=== PATIENT | female | born 1940 | race Caucasian/White ===

== ENCOUNTER 2024-11-10 08:30 | Inpatient (IN) | payer MEDICARE, OTHER, SELFPAY ==
[2024-11-07 21:45] VITALS: BP 170/98
--- NOTE | 2024-11-07 23:07 | ED.GENMED ---
History of Present Illness
General
Chief Complaint: Musculo-Skeletal Complaint
Source: patient and witness (Friend of hers who was with the patient all day today, witnessing fall and assisting during fall and after.)
Exam Limitations: none
Time Seen by Provider: 11/07/24 22:30
Nursing documentation reviewed up to this point in time: agreed with
History of Present Illness
History of Present Illness:
This is an 84-year-old woman who resides at home, alone, independently. She has history of persistent A-fib chronically maintained on Xarelto. History of CHF, chronic kidney disease, hypothyroidism, gout, morbid obesity. She also has history of
osteoarthritis, chronic ambulatory dysfunction, chronically uses a walker to ambulate.
She traveled to the [place] today in preparation to sell her sure house. She was accompanied by her friend who is assisting her to ambulate up 4 steps to the outside steps. While doing so she lost her balance and fell backwards onto her
friend who assisted her while falling. She denies head injury nor loss of consciousness but states she twisted her knees and complains of pain more so left knee than right. She required assistance from 2 male strangers to help her to stand and
help her to ambulate up the steps and into her house. She was able to ambulate albeit slowly with her walker and proceeded to sit down on the couch. Initial fall occurred around 12 noon.
She continued to sit on the couch while waiting for a [email or web address] company and eventually plan to leave for home around 6 PM. Unfortunately she was unable to stand from seated position on the couch due to bilateral knee pain and again
required assistance from strangers to help her to stand up from the couch. They then assisted her with her walker to ambulate out to her outdoor steps where she took 1 step and her left knee gave out and she fell again onto her bottom. Again
denies head injury nor loss of consciousness. She was able to scoot down the steps on her her bottom and was assisted to stand by the strangers, assisted to ambulate into the passenger seat of her friend's car.
Upon returning home, locally, she was unable to get out of the car thus her friend brought her to the ED for further evaluation.
She did take 2 Tylenol around 8 PM, only mild improvement in pain.
She denies weakness or numbness, denies hip pain nor back pain nor neck pain, no headache, no nausea nor vomiting, no abdominal pain. She denies chest pain or palpitations nor shortness of breath.
She does have history of gout with recent prolonged gout flare of her foot this spring and then more recently a gout flare of her left small finger approximately 3 weeks ago. Was evaluated by her nursing secretary 3 weeks ago and was placed on a course
of colchicine which she noted relief of gout but colchicine caused significant lower abdominal discomfort/pain, bloating.
Upon review of records, PCP discussed initiation of allopurinol during most recent visit in May. Patient was hesitant at that time.
She does admit to 'a lot of arthritis' and takes Tylenol on a regular basis. She notes somewhat chronic right knee pain. Has never undergone orthopedic evaluation for her knee/joint pains.
Past History
Past History
ED Past Medical History: Arrthythmia (Chronic atrial fibrillation), CHF, Renal failure (Chronic kidney disease), Hypothyroidism and Other (Gout, arthritis, morbid obesity, ambulatory dysfunction/utilizes walker to ambulate)
ED Past Surgical History: Appendectomy, (X 4), Orthopedic (Cervical laminectomy), Tonsilectomy and Other (Splenectomy)
Social History
Tobacco: Non-smoker
Alcohol: None
Personal:
Living: alone
Employment: Retired
Family History
Family History: Other (Noncontributory)
Phy Exam
Physical Exam
Physical Exam:
TRAUMA EXAM:
VITAL SIGNS: Vital signs reviewed, cooperative. 84-year-old morbidly obese woman appears her stated age, bright and alert, pleasant, appears in mild distress related to pain but easily communicative.
DISTRESS: Appears in mild distress related to pain. A female friend is accompanying.
EYES: Pupils reactive, no orbital trauma
NOSE: No deformity or epistaxis
FACE AND SCALP: No scalp or facial trauma, external canals no blood
NECK: Supple nontender
BACK: Back nontender, pelvis stable to compression
RESPIRATORY: No distress, breath sounds normal, no tender chest wall
CARDIAC: No murmur, pulses equal and strong
ABDOMEN: Rotund, soft nontender bowel sounds normal
SKIN: Skin intact no bleeding, color normal
EXTREMITIES: Bilateral knees with moderate soft tissue swelling versus joint effusion bilaterally left greater than right with moderate tenderness about the left anterior to lateral knee with moderately restricted range of motion related to pain.
No crepitus. There is mild to moderate tenderness about the anterior, medial as well as lateral right knee. Moderately restricted range of motion right knee related to pain. No crepitus. There is no tenderness to the lower leg nor thigh nor
hips. Peripheral pulses are full and equal bilaterally. Sensation and strength intact.
NEUROLOGICAL: Alert, oriented x 3, lower extremity distal strength and sensation intact. Significantly limited leg lift bilaterally related to bilateral knee pain. Bilateral upper extremity sensation and strength intact.
PSYCH: Mood affect normal
Course
Orders/Labs/Results
Orders:
Orders
11/07/24 23:05
Ondansetron HCl [Zofran] 4 mg PO NOW STA
Rivaroxaban [Xarelto] 20 mg PO NOW STA
Tramadol HCl [Ultram] 50 mg PO NOW STA
Knee, Left 4 or More Views [CR Knee - Left 4 Or More View*] Urgent
Comment:
Reason For Exam: fall x2 b/l knee pain L>R
Knee, Right 4 or More Views [CR Knee- Right 4 Or More View*] Urgent
Comment:
Reason For Exam: fall x2, b/l knee pain L>R
11/07/24 23:52
CRP [C-Reactive Protein] Urgent
Complete Blood Count/With Diff Urgent
Comprehensive Metabolic Panel Urgent
Sed Rate [Erythrocyte Sed Rate] Urgent
Uric Acid Urgent
Abnormal Lab Results
11/07/24
23:52
WBC 11.3 H 10^3/uL
(4.8-10.8)
RBC 3.99 L 10^6/uL
(4.20-5.40)
MCV 100.5 H fL
(81.0-99.0)
MCH 33.1 H pg
(27.0-31.0)
MCHC 32.9 L g/dL
(33.0-37.0)
RDW 15.3 H %
(11.5-14.5)
MPV 11.0 H fL
(7.4-10.4)
Absolute Neuts (auto) 8.3 H 10^3/uL
(1.4-6.5)
Absolute Monos (auto) 1.0 H 10^3/uL
(0.1-0.6)
Lymphocytes % 16.5 L %
(20.5-51.1)
11/07/24 23:52
Vital Signs
Initial and Last Documented VS:
Initial Vital Signs
Temp Pulse Resp BP Pulse Ox
98.0 F 92 18 170/98 96
11/07/24 21:45 11/07/24 21:45 11/07/24 21:45 11/07/24 21:45 11/07/24 21:45
Last Documented Vital Signs
Temp Pulse Resp BP Pulse Ox
98.0 F 73 20 143/80 97
11/07/24 21:45 11/08/24 00:10 11/08/24 00:10 11/08/24 00:10 11/08/24 00:10
MDM/Problems Addressed
Differential Diagnosis Includes:
The Differential Diagnosis includes, in no particular order and is not limited to:
1. Fracture (patellar, tibial plateau)
2. Meniscal tear
3. Ligamentous injury
4. Exacerbation of osteoarthritis
5. Gout flare
6. Soft tissue injury or strain
7. Deep vein thrombosis-unlikely, patient has been compliant with Xarelto, nothing on exam to suggest DVT.
8. Muscle spasm
9. Cellulitis
10. Peripheral neuropathy
MDM/Problems Addressed:
Acute:
- Bilateral knee pain following falls.
- Bilateral leg swelling.
- Potential musculoskeletal injury from falls.
Chronic:
- Gout.
- Chronic kidney disease
- Chronic A-fib�maintained on Xarelto
Chronic conditions affecting care: Arrhythmia and Kidney disease
Acute Exacerbation and/or Progression of Chronic Illness:
Chronic ambulatory dysfunction requiring walker to ambulate
Chronic joint pain/arthritis.
Falls x 2 today with acute on chronic bilateral knee pain
Will medicate for pain with an oral dose of tramadol. Due to prior history of nausea with Percocet will pretreat with a dose of Zofran.
Will give her usual dose of Xarelto tonight. No evidence of hematoma nor hemarthrosis.
Denies head injury, no headache, no neck or back pain, no focal neuro-deficits thus CT of the head is not indicated.
Social determinants of health:
Patient resides alone and chronically requires a walker to ambulate.
With severe bilateral knee pain after fall x 2 today, she is at significant risk for recurrent falls, at risk for significant injury as she is chronically maintained on Xarelto.
As such will require acute hospitalization for pain control, ambulation evaluation. May require orthopedic evaluation.
Will check labs as well as inflammatory markers, uric acid.
*Radiology
Radiology exam reviewed: preliminary read by ED provider (Bilateral knee x-rays show moderate DJD with significant joint space narrowing laterally. No evidence of fracture.)
*Pulse Oximetry
SaO2: 96
Oxygen Mode of Delivery: Room air
Patient hypoxic: no
*Critical Care Note
Total Time (30-74mins, 75-104mins- exclusive of procedures): Not Applicable
ED Attending Note
-
Portions of this chart may have been created with voice recognition software.� Occasional wrong word or��sound alike� substitutions may have occurred due to the inherent limitations of voice recognition software.
Discharge Plan
Departure
Patient Disposition: Admit
Date of Disposition: 11/08/24
Time of Disposition: 00:24
Admit to: Med/Surg
Admit to doctor: Mendoza
Presentation/result/management discussed w/ accepting MD/DO: Hospitalist
Condition: Fair
Discharge Problem:
acute sprain/strain b/l knees, acute on chronic ambulatory dysfunction, Morbid obesity
Prescriptions:
No Action
acetaminophen [Tylenol] 325 mg Tablet
650 mg PO DAILY
potassium chloride [Klor-Con 10] 10 mEq Tablet Extended Release
10 meq PO BID
levothyroxine 50 mcg Tablet
50 mcg PO DAILY
furosemide 20 mg Tablet
20 mg PO DAILY
rivaroxaban [Xarelto] 20 mg Tablet
20 mg PO DAILY
Vitamin D
50 mcg PO DAILY
Referrals:
Jody Willingham MD [Family Provider, Family Practice]
Interventions
Interventions:
*Risk Screen - Suicide Last Done: 11/08/24 00:10
*General Assessment Last Done: 11/07/24 21:45
*Neglect/Abuse Screening Last Done: 11/08/24 00:10
*ED- Fall Risk Assessment Last Done: 11/08/24 00:10
*ED COVID-19 Vaccine History Last Done: 11/08/24 00:10
ED-Musculoskeletal Assessment Last Done: 11/08/24 00:10
Discharge Date and Time
Print Language: TURKMEN
[2024-11-07] MEDS: ZOFRAN 4 MG PO (23:29)
[2024-11-07] MEDS: XARELTO 20 MG PO (23:29)
[2024-11-07] MEDS: ULTRAM 50 MG PO (23:55)
[2024-11-08] VITALS (7 sets, daily range): BP systolic 96–144; BP diastolic 56–80; PULSE 92; BMI 45.4; BMI 44.9
[2024-11-08 00:01] LABS: Hematocrit 40.1 % (37.0-47.0); Hemoglobin 13.2 g/dL (12.0-16.0); Mean Corp Hgb Conc. 32.9 g/dL (33.0-37.0); Mean Corpuscular Volume 100.5 fL (81.0-99.0); Nucleated Red Blood Cells % 0 %; Platelet Count 313 10^3/uL (130-400); Red Cell Dist. Width 15.3 % (11.5-14.5)
[2024-11-08 00:28] LABS: Blood Urea Nitrogen 24 mg/dl (7-17); Calcium 10.0 mg/dl (8.4-10.2); Carbon Dioxide 28 mmol/L (22-30); Chloride 107 mmol/L (98-107); Estimated Creatinine Clearance 52 ml/min; Glucose 114 mg/dl (70-99); Sodium 140 mmol/L (135-145); Uric Acid 7.3 mg/dl (2.5-6.2); eGFR 55.55
[2024-11-08 00:29] LABS: C-Reactive Protein 44.00 mg/L (0.0-10.00)
--- NOTE | 2024-11-08 01:55 | HPS.HSE ---
Family Physician
-
Family Physician: Jdoy Willingham MD
Chief Complaint
-
Knee Pain, Weakness
History of Present Illness
Patient is an 84y F with PMH significant for A-Fib, DJD and obesity who presents to ED complaining of bilateral knee pain and weakness / falls. [place]. While trying to climb
the stairs into her home she had significant difficulty. She notes that her L knee 'gave out' and she fell. Her friend was behind her on the stairs and she did not strike her had or suffer and impact injury. She does state that her L knee in
particular twisted significantly during the fall. Patient was assisted by two passers-by and helped into her house. She sat on the couch for several hours and notes that she was unable to stand due to pain and leg weakness.
Patient was assisted back down the stairs and states that she suffered a second fall. Again, no significant injury / trauma. She was assisted into her car and returned to [facility].
Upon arrival here, patient was met at home by her son - but was unable to even get out of the car to attempt to walk into the house.
She was brought to the ED for further evaluation.
Patient complains of pain in the R knee > > L knee.
Medical History
Past Medical History
Past Medical History: Reports Other
Additional Past Medical History:
Permanent Atrial Fibrillation
History of DVT
Hypothyroidism
Chronic HFpEF
Obesity
Past Surgical History: Reports Other
Additional Past Surgical History:
Appendectomy
Cervical Laminectomy
T&A
x 4
Splenectomy
DCCV
Social History
Tobacco: Non-smoker
Alcohol: Occasional
Drug: None
Family History
Family History: Not pertinent
Allergies / Home Medications
Allergies reflects when Allergies were last updated in [employer].
Home Medications with original date entered in [employer]
Allergy/Medication List:
Allergies
Allergy/AdvReac Type Severity Reaction Status Date / Time
oxycodone (From Percocet) Allergy Unknown Verified 11/07/24 21:45
Home Medications
Vitamin D 50 mcg PO DAILY 11/07/24
acetaminophen 325 mg tablet (Tylenol) 650 mg PO DAILY 11/07/24
furosemide 20 mg tablet 20 mg PO DAILY 11/07/24
levothyroxine 50 mcg tablet 50 mcg PO DAILY 11/07/24
potassium chloride 10 mEq tablet,extended release (Klor-Con) 10 meq PO BID 11/07/24
rivaroxaban 20 mg tablet (Xarelto) 20 mg PO DAILY 11/07/24
Review of Systems
-
History Source: Patient
A 12 point ROS was completed and negative except as noted: Yes
Constitutional: Reports Fatigue; Denies Fever or Chills
Respiratory: Denies Cough or Trouble Breathing
Cardiac: Denies Chest Pain or Palpitations
Abdomen/GI: Denies Abdominal Pain, Nausea, Vomiting or Diarrhea
: Denies Dysuria or Flank Pain
Musculoskeletal: Reports Joint Pain and Joint Swelling; Denies Edema
Neurological: Reports Weakness; Denies Dizzy or Headache
Physical Exam
Vital Signs
Vital Signs
Temp Pulse Resp BP Pulse Ox
98.0 F 73 20 143/80 97
11/07/24 21:45 11/08/24 00:10 11/08/24 00:10 11/08/24 00:10 11/08/24 00:10
Physical Exam
General: Other (84y F in no acute distress.)
HEENT: Moist mucous membranes
Respiratory: Clear; No Wheezes, Rales or Rhonchi
Cardiac: S1/S2 and Irregular Rhythm; No Murmur
GI: Soft, Non Tender, Non Distended and Normal Bowel Sounds
Musculoskeletal: No Clubbing, No Cyanosis and Other (Trace LE edema. L knee with mild tenderness about the knee - mostly laterally. No erythema, induration, hematoma, etc, Passive ROM with minimal discomfort.)
Neuro: AO x 3
Laboratory Results
-
11/07/24 23:52
11/07/24 23:52
Laboratory Results
Total Bilirubin Cancelled 11/07/24 23:52
AST Cancelled 11/07/24 23:52
ALT Cancelled 11/07/24 23:52
Alkaline Phosphatase Cancelled 11/07/24 23:52
Impression/Plan
-
A/P: Patient is an 84y F with PMH significant for A-Fib, hypothyroidism and obesity who presents to ED complaining of falls, knee pain and weakness.
L > R Knee Pain
Fall at Home (x 2)
Ambulatory Dysfunction
- Observe overnight for further evaluation and treatment.
- X-rays with advanced DJD but no acute fracture, etc.
- Pain control / supportive care.
- ? soft tissue injury given described twisting mechanism of initial fall.
- PT eval in the AM.
- Follow for clinical improvement / gait stability.
History of Gout
- Neither knee with significant erythema, increased warmth,etc to suggest gout component.
- Patient reports recent GI upset with course of colchicine (few weeks ago).
- Uric acid value noted.
- NSAIDs included in pain regimen.
Permanent Atrial Fibrillation
- Stable. Continue Xarelto for stroke risk reduction.
Chronic HFpEF
- Stable. No significant volume overload on exam.
- Patient states that she has not been taking Lasix for a week or two due to GI upset noted above.
- Continue to hold for now.
- Follow I/Os, daily weights, etc.
Hypothyroidism
- Continue T4 supplementation.
Morbid Obesity due to excess calories
- Affects all aspects of care and specifically joint pain / ambulatory issues.
- Encourage healthy diet and increased exercise with goal of weight reduction.
History of DVT
DVT Prophylaxis
- On Xarelto.
Code Status: Full
[2024-11-08] MEDS: TORADOL 10 MG IV ×2 (02:38→10:24)
--- NOTE | 2024-11-08 03:05 | PTCARENOTE ---
Pt admitted to 402-1 from ED. Pulled over to bed x 3. AAOx3, VSS. call parker within reach.
[2024-11-08] MEDS: SYNTHROID 50 MCG PO (06:37)
[2024-11-08 08:20] LABS: Hematocrit 36.0 % (37.0-47.0); Hemoglobin 11.7 g/dL (12.0-16.0); Mean Corp Hgb Conc. 32.5 g/dL (33.0-37.0); Mean Corpuscular Volume 102.3 fL (81.0-99.0); Platelet Count 287 10^3/uL (130-400); Red Cell Dist. Width 15.9 % (11.5-14.5)
[2024-11-08] MEDS: TYLENOL 1000 MG PO ×3 (08:24→21:39)
[2024-11-08 09:10] LABS: Blood Urea Nitrogen 23 mg/dl (7-17); Calcium 9.1 mg/dl (8.4-10.2); Carbon Dioxide 26 mmol/L (22-30); Chloride 110 mmol/L (98-107); Estimated Creatinine Clearance 47 ml/min; Glucose 97 mg/dl (70-99); Potassium 4.1 mmol/L (3.5-5.1); Sodium 141 mmol/L (135-145); eGFR 49.55
--- NOTE | 2024-11-08 10:38 | PTOTSP ---
Please order occupational therapy eval for ADL dysfunction for rehab placement.
[2024-11-08] MEDS: DESENEX/MITRAZOL/ZEASORB 1 APPLIC TOPICAL ×2 (14:12→21:40)
--- NOTE | 2024-11-08 14:22 | W.PN.HOSP.TC ---
Today's Communication/Plan
-
Pain control, PT
Assessment / Plan
Assessment / Plan
A/P: Patient is an 84y F with PMH significant for A-Fib, hypothyroidism and obesity who presents to ED complaining of falls, knee pain and weakness.
B/l knee pain
Ambulatory Dysfunction
- X-rays with advanced DJD but no acute fracture, etc.
- Ice and raise legs
- Pain control / supportive care.
- ? soft tissue injury given described twisting mechanism of initial fall, consider CT or MRI if worsens.
- PT eval
- Follow for clinical improvement / gait stability.
History of Gout
- Neither knee with significant erythema, increased warmth,etc to suggest gout component.
- Patient reports recent GI upset with course of colchicine (few weeks ago).
- Uric acid value noted.
- NSAIDs included in pain regimen.
Permanent Atrial Fibrillation
- Stable. Continue Xarelto for stroke risk reduction. HR controlled
Chronic HFpEF
- Stable. No significant volume overload on exam.
- Patient states that she has not been taking Lasix for a week or two due to GI upset noted above.
- Continue to hold for now.
- Follow I/Os, daily weights, etc.
Hypothyroidism
- Continue T4 supplementation.
Morbid Obesity due to excess calories
- Affects all aspects of care and specifically joint pain / ambulatory issues.
- Encourage healthy diet and increased exercise with goal of weight reduction.
History of DVT
DVT Prophylaxis
- On Xarelto.
Code Status: Full
Anticipated Discharge: 24 - 48 hours
Subjective/Interval History
-
Date of Service: November 08, 2024
Pt still having a lot of knee pain, L >R
Objective Data
-
Labs:
Laboratory Results
11/08/24
06:43
WBC 9.4
Hgb 11.7 L
Hct 36.0 L
Plt Count 287
Sodium 141
Potassium 4.1
Chloride 110 H
Carbon Dioxide 26
BUN 23 H
Creatinine 1.1 H
Glucose 97
Calcium 9.1
Vital Signs:
Vital Signs
Temp Pulse Resp BP Pulse Ox
97.5 F 86 24 105/56 97
11/08/24 07:05 11/08/24 07:05 11/08/24 07:05 11/08/24 07:05 11/08/24 08:00
Review of Systems
-
All other systems: Reviewed and negative
Physical Exam
-
General: No Apparent Distress
HEENT: Moist Mucous Membranes, Anicteric and PERRLA
Respiratory: Clear to Auscultation; Negative Wheezes, Rales or Rhonchi
Cardiac: Regular Rhythm and S1/S2; Negative Murmur, Rub or Gallop
GI: Soft, Nontender, Nondistended and Normal Bowel Sounds
Musculoskeletal: Other (b/l knee tender)
Skin: Warm and Dry; Negative Rash, Ulcers or Lesions
Neuro: Awake and AO x 3
Hematologic / Lymphatic: No Lymphadenopathy
Psych: Calm
Data Reviewed
-
Diagnostic Radiology: Image personally visualized and interpreted
Labs: Labs Reviewed by me
--- NOTE | 2024-11-08 14:38 | CM ---
Addendum entered by Delores Leon RN 11/08/24 16:05:
PT indicates SNF . Pt under observation. Pt does not qualify for [facility] Waiver for SNF.
Original Note:
Alert awake oriented patient who lives alone in a 1 story home with 1 step to enter . She has a friend Olga who assists her as needed.Pt does not drive .She uses a walker and wheelchair.Pt has a son Sergey but does not have number. VERNON letter
explained signed on chart.
Hx of [facility] VN Hx of [facility] SNF
Pharmacy [facility]
PCP DR Willingham
PLan PT indicates SNF
[2024-11-08] MEDS: XARELTO 20 MG PO (18:14)
[2024-11-09 06:00] VITALS: BMI 45.7
[2024-11-09] MEDS: SYNTHROID 50 MCG PO (06:33)
[2024-11-09 07:55] VITALS: BP 133/89
[2024-11-09 07:56] LABS: Hematocrit 37.1 % (37.0-47.0); Hemoglobin 11.9 g/dL (12.0-16.0); Mean Corp Hgb Conc. 32.1 g/dL (33.0-37.0); Mean Corpuscular Volume 102.2 fL (81.0-99.0); Nucleated Red Blood Cells % 0 %; Platelet Count 277 10^3/uL (130-400); Red Cell Dist. Width 15.7 % (11.5-14.5)
[2024-11-09 08:23] LABS: Blood Urea Nitrogen 27 mg/dl (7-17); Calcium 9.2 mg/dl (8.4-10.2); Carbon Dioxide 27 mmol/L (22-30); Chloride 107 mmol/L (98-107); Estimated Creatinine Clearance 43 ml/min; Glucose 104 mg/dl (70-99); Potassium 4.2 mmol/L (3.5-5.1); Sodium 138 mmol/L (135-145); eGFR 44.64
[2024-11-09] MEDS: TYLENOL 1000 MG PO ×3 (08:48→21:05)
[2024-11-09] MEDS: DESENEX/MITRAZOL/ZEASORB 1 APPLIC TOPICAL ×2 (08:48→20:37)
[2024-11-09 10:42] VITALS: BMI 45.7
[2024-11-09] MEDS: TYLENOL PO (11:13)
--- NOTE | 2024-11-09 13:30 | W.PN.HOSP.TC ---
Today's Communication/Plan
-
CT of knees
OTG eval
Assessment / Plan
Assessment / Plan
A/P: Patient is an 84y F with A-Fib, hypothyroidism and obesity who presents with knee pain after a fall.
B/l knee pain
Ambulatory Dysfunction
- X-rays with advanced DJD but no acute fracture.
- Ice and raise legs
- Pain control / supportive care.
- ? soft tissue injury given described twisting mechanism of initial fall, check CT of knees, to rule out occult fracture or effusion. If any found can consult orthopedic surgery.
- PT eval rec SNF but pt is obs and it wont be covered per CM
OT eval
- Follow for clinical improvement / gait stability.
Constipation
bowel regimen
History of Gout
- Neither knee with significant erythema, increased warmth, etc to suggest gout component.
- Patient reports recent GI upset with course of colchicine (few weeks ago).
- Uric acid value noted.
Permanent Atrial Fibrillation
- Stable. Continue Xarelto for stroke risk reduction. HR controlled
Chronic HFpEF
- Stable. No significant volume overload on exam.
- Patient states that she has not been taking Lasix for a week or two due to GI upset noted above.
- Follow I/Os, daily weights, etc.
Hypothyroidism
- Continue T4 supplementation.
Morbid Obesity due to excess calories
- Affects all aspects of care and specifically joint pain / ambulatory issues.
- Encourage healthy diet and increased exercise with goal of weight reduction.
History of DVT
DVT Prophylaxis
- On Xarelto.
Code Status: Full
Anticipated Discharge: 24 - 48 hours
Subjective/Interval History
-
Date of Service: November 09, 2024
Patient complaining of a lot of pain in her left greater than right knee and says she can even stand. She is constipated
Objective Data
-
Labs:
Laboratory Results
11/09/24
07:16
WBC 7.9
Hgb 11.9 L
Hct 37.1
Plt Count 277
Sodium 138
Potassium 4.2
Chloride 107
Carbon Dioxide 27
BUN 27 H
Creatinine 1.2 H
Glucose 104 H
Calcium 9.2
Vital Signs:
Vital Signs
Temp Pulse Resp BP Pulse Ox
98.6 F 84 16 133/89 93
11/09/24 07:55 11/09/24 07:55 11/09/24 07:55 11/09/24 07:55 11/09/24 08:45
I&O
11/08/24 11/09/24 11/10/24
06:59 06:59 06:59
Intake Total 1100 / 1100
Output Total 200 / 200
Balance 900 / 900
Review of Systems
-
All other systems: Reviewed and negative
Physical Exam
-
General: No Apparent Distress
HEENT: Moist Mucous Membranes, Anicteric and PERRLA
Respiratory: Clear to Auscultation; Negative Wheezes, Rales or Rhonchi
Cardiac: S1/S2, Irregular Rhythm and Murmur; Negative Rub or Gallop
GI: Soft, Nontender, Nondistended and Normal Bowel Sounds
Musculoskeletal: Other (b/l knee tender)
Skin: Warm and Dry; Negative Rash, Ulcers or Lesions
Neuro: Awake and AO x 3
Hematologic / Lymphatic: No Lymphadenopathy
Psych: Calm
Data Reviewed
-
Diagnostic Radiology: Report Reviewed by me and Discussed with Physician
Labs: Labs Reviewed by me
[2024-11-09 15:11] VITALS: BP 174/81; PULSE 87; O2SAT 96
[2024-11-09 15:22] VITALS: BP 139/90
[2024-11-09] MEDS: LASIX 20 MG PO (15:28)
[2024-11-09] MEDS: MIRALAX 17 GRAMS PO (15:33)
--- NOTE | 2024-11-09 15:36 | PTCARENOTE ---
Pt AAo x3, anxious at tines; [place]; c/o pain in knees/legs with movement; able to stand to transfer with assist x2/walker, VSS. On room air- pulse ox 94%, no SOB noted. Abd obese, soft, pratibha PO well. Incont urine; wears own Depends.
Afebrile; skin W/D/I; scattered arm bruises. Resting in chair at present. Will continue to monitor.t
--- NOTE | 2024-11-09 15:51 | CM ---
PT OT indicate SNF.
Pt is under observation and Medicare . She does not qualify for [employer] waiver.
Pt notified of above.
Cat of knees done.
PLAN Discharge planning on going
[2024-11-09] MEDS: XARELTO 15 MG PO (17:34)
[2024-11-09] MEDS: KCL 10 MEQ PO (20:36)
[2024-11-09 23:23] VITALS: BP 139/82
[2024-11-10 06:00] VITALS: BMI 45.9
[2024-11-10] MEDS: SYNTHROID 50 MCG PO (06:04)
[2024-11-10 07:05] VITALS: BP 152/89
[2024-11-10 07:58] LABS: Hematocrit 35.1 % (37.0-47.0); Hemoglobin 11.6 g/dL (12.0-16.0); Mean Corp Hgb Conc. 33.0 g/dL (33.0-37.0); Mean Corpuscular Volume 99.2 fL (81.0-99.0); Platelet Count 253 10^3/uL (130-400); Red Cell Dist. Width 15.2 % (11.5-14.5)
[2024-11-10] MEDS: KCL 10 MEQ PO ×2 (08:09→21:17)
[2024-11-10] MEDS: TYLENOL 1000 MG PO ×3 (08:09→21:17)
[2024-11-10] MEDS: LASIX 20 MG PO (08:10)
[2024-11-10] MEDS: DESENEX/MITRAZOL/ZEASORB 1 APPLIC TOPICAL ×2 (08:11→21:18)
[2024-11-10 08:50] LABS: Blood Urea Nitrogen 26 mg/dl (7-17); Calcium 9.0 mg/dl (8.4-10.2); Carbon Dioxide 25 mmol/L (22-30); Chloride 108 mmol/L (98-107); Estimated Creatinine Clearance 47 ml/min; Glucose 87 mg/dl (70-99); Potassium 4.6 mmol/L (3.5-5.1); Sodium 139 mmol/L (135-145); eGFR 49.55
--- NOTE | 2024-11-10 11:24 | W.PN.HOSP.TC ---
Today's Communication/Plan
-
Orthopedic consult
Assessment / Plan
Assessment / Plan
Impression:
Patient is an 84y F with history of permanent A-Fib, hypothyroidism, gout, chronic CHF and obesity who presents with knee pain after a fall.
Bilateral knee x-ray shows:
There are severe degenerative changes most pronounced involving the lateral tibiofemoral compartment. There is no evidence of fracture
Seen patient underwent CT scan for persistent pain of bilateral knee.
CT scan right knee shows:
Generalized osteopenia
Advanced tricompartmental osteoarthritis
Large right knee effusion
Large Cottrell's cyst
No fracture identified.
CT scan of the right knee shows:
There is a subtle acute minimally depressed fracture of the mid to posterior medial tibial plateau. Degree of depression is 2 mm.
8 mm of lateral subluxation of patellar apex with respect to the trochlear groove.
Generalized osteopenia
Advanced tricompartmental osteoarthritis
Large left knee effusion
Large Cottrell's cyst
Orthopedic consulted.
Assessment/plan:
Status post fall with left tibial plateau fracture
B/l knee joint effusion
CT scan right knee shows:
Generalized osteopenia
Advanced tricompartmental osteoarthritis
Large right knee effusion
Large Cottrell's cyst
No fracture identified.
CT scan of the right knee shows:
There is a subtle acute minimally depressed fracture of the mid to posterior medial tibial plateau. Degree of depression is 2 mm.
8 mm of lateral subluxation of patellar apex with respect to the trochlear groove.
Generalized osteopenia
Advanced tricompartmental osteoarthritis
Large left knee effusion
Large Cottrell's cyst
PT recommending rehab
Orthopedic consulted.
Constipation
bowel regimen
History of Gout
- Neither knee with significant erythema, increased warmth, etc to suggest gout component.
- Patient reports recent GI upset with course of colchicine (few weeks ago).
- Uric acid value noted.
Permanent Atrial Fibrillation
- Stable. Continue Xarelto for stroke risk reduction. HR controlled
Chronic HFpEF
- Stable. No significant volume overload on exam.
- Patient states that she has not been taking Lasix for a week or two due to GI upset noted above.
- Follow I/Os, daily weights, etc.
Hypothyroidism
- Continue T4 supplementation.
Morbid Obesity due to excess calories
- Affects all aspects of care and specifically joint pain / ambulatory issues.
- Encourage healthy diet and increased exercise with goal of weight reduction.
CODE STATUS: Full code
DVT prophylaxis: Xarelto
Diet: Regular diet
Family communication: Discussed with friend Olga on the phone, tried to call the patient's son at [phone],No answer left VM.
Disposition: Pending orthopedic consult
In total time spent on today's encounter was 65 minutes which included time spent in counseling the patient/family regarding diagnosis and treatment plan as listed above, goals of care, and symptom management. Case was discussed with nursing staff,
specialists, and care coordinators/case management. All labs and imaging personally reviewed by me. Remainder the time spent in detailed review of previous records, lab data, imaging, and other medical provider documentation. Rt
Anticipated Discharge: 24 - 48 hours
Subjective/Interval History
-
Date of Service: November 10, 2024
Patient seen and examined at bedside, denies any chest pain or shortness of breath, no abdominal pain, no nausea, no vomiting, no diarrhea or constipation.
Still with left knee pain
Objective Data
-
Labs:
Laboratory Results
11/10/24
06:00
WBC 11.5 H
Hgb 11.6 L
Hct 35.1 L
Plt Count 253
Sodium 139
Potassium 4.6
Chloride 108 H
Carbon Dioxide 25
BUN 26 H
Creatinine 1.1 H
Glucose 87
Calcium 9.0
Vital Signs:
Vital Signs
Temp Pulse Resp BP Pulse Ox
98.9 F 88 20 152/89 95
11/10/24 07:05 11/10/24 08:10 11/10/24 07:05 11/10/24 08:10 11/10/24 07:05
I&O
11/09/24 11/10/24 11/11/24
06:59 06:59 06:59
Intake Total 1100 / 1100 960 / 960
Output Total 200 / 200
Balance 900 / 900 960 / 960
Physical Exam
-
General: Well Developed, Well Nourished, No Apparent Distress and Comfortable
HEENT: Normocephalic, Atraumatic, Moist Mucous Membranes, No Ptosis, PERRLA and Nose Appears Normal
Respiratory: Clear to Auscultation and Non Labored Respirations
Cardiac: S1/S2 and Irregular Rhythm
Breast: Deferred by me
GI: Soft, Nontender, Nondistended and Normal Bowel Sounds
Genito-urinary: No Costovertebral Tender
Musculoskeletal: No Clubbing, No Cyanosis, No Edema and Other (left knee tenderness)
Skin: Warm
Neuro: Awake, Alert, Oriented, AO x 3 and No Motor Deficits
Psych: Calm
Data Reviewed
-
Diagnostic Radiology: Image personally visualized and interpreted and Report Reviewed by me
CT Scan: Image personally visualized and interpreted and Report Reviewed by me
Ultrasound: Image personally visualized and interpreted and Report Reviewed by me
MRI: Image personally visualized and interpreted and Report Reviewed by me
Medical Tests (Nuc Med, Echo etc): Image personally visualized and interpreted and Report Reviewed by me
Labs: Labs Reviewed by me
Old Records: Reviewed
[2024-11-10 15:33] VITALS: BP 131/70
[2024-11-10] MEDS: XARELTO 15 MG PO (17:32)
[2024-11-10 23:32] VITALS: BP 132/91
[2024-11-11] MEDS: SYNTHROID 50 MCG PO (05:18)
[2024-11-11 06:00] VITALS: BMI 45.0
[2024-11-11 07:55] VITALS: BP 139/90
[2024-11-11 07:57] LABS: Hematocrit 36.2 % (37.0-47.0); Hemoglobin 11.6 g/dL (12.0-16.0); Mean Corp Hgb Conc. 32.0 g/dL (33.0-37.0); Mean Corpuscular Volume 101.4 fL (81.0-99.0); Platelet Count 300 10^3/uL (130-400); Red Cell Dist. Width 15.5 % (11.5-14.5)
[2024-11-11 08:30] LABS: Blood Urea Nitrogen 24 mg/dl (7-17); Calcium 9.3 mg/dl (8.4-10.2); Carbon Dioxide 26 mmol/L (22-30); Chloride 108 mmol/L (98-107); Estimated Creatinine Clearance 47 ml/min; Glucose 91 mg/dl (70-99); Potassium 4.1 mmol/L (3.5-5.1); Sodium 140 mmol/L (135-145); eGFR 49.55
--- NOTE | 2024-11-11 09:03 | CON.ORTHO ---
Consultation
-
Date/Time Consultation Requested: unknown
Date/Time Consultation Performed: 11/11/24 @0845
Requesting Provider: Andrei Ramires
Performing Provider: Aria Tiwari PA-C / Virgilio Kennedy MD
Reason for Consultation: left tibia plateau fracture
Consultation - Orthopedics
History
HPI: 84yo female admitted to [facility] for bilateral knee pain. She reports that this past Tuesday, she had two falls. One while going up the steps and then a second a few hours later while going down the steps. She came to the ER for
evaluation. She reports that the pain in her right knee has improved however she continues with pain in the left knee. She has known osteoarthritis of both knees. Currently, she is resting comfortably in bed. She reports that she had a lot of pain
in her left knee with walking to the door with PT yesterday. Xrays were performed which showed bilateral advanced knee osteoarthritis. She underwent CT scan of bilateral knees yesterday which show a left tibial plateau fracture. Orthopedics has
been asked to see the patient for further recommendations.
PAST MEDICAL HISTORY: Permanent Atrial Fibrillation, History of DVT, Hypothyroidism, Chronic HFpEF, Obesity, Osteoarthritis, Chronic ambulatory dysfunction, chronic kidney disease, gout.
PAST SURGICAL HISTORY: Appendectomy, Cervical Laminectomy, T&A, x 4, Splenectomy, DCCV
SOCIAL HISTORY: denies tobacco, occasional alcohol, lives at home alone, ambulates with a walker
FAMILY HISTORY: Non contributory
REVIEW OF SYSTEMS: 12 point review of systems obtained and negative except those mentioned in the HPI
Allergies / Home Medications
Allergy/AdvReac Type Severity Reaction Status Date / Time
oxycodone (From Percocet) Allergy Unknown Verified 11/07/24 21:45
�Medication �Instructions �Recorded
Vitamin D 50 mcg PO DAILY 11/07/24
acetaminophen 325 mg tablet 650 mg PO DAILY 11/07/24
(Tylenol)
furosemide 20 mg tablet 20 mg PO DAILY 11/07/24
levothyroxine 50 mcg tablet 50 mcg PO DAILY 11/07/24
potassium chloride 10 mEq 10 meq PO BID 11/07/24
tablet,extended release (Klor-Con)
rivaroxaban 20 mg tablet (Xarelto) 20 mg PO DAILY 11/07/24
Vital Signs / Lab Results
Temp Pulse Resp BP Pulse Ox
98.5 F 81 16 139/90 95
11/11/24 07:55 11/11/24 07:55 11/11/24 07:55 11/11/24 07:55 11/11/24 07:55
11/11/24 06:22
11/11/24 06:22
RADIOGRAPHIC FINDINGS:
Xrays left knee show severe degenerative changes most pronounced involving the lateral tibiofemoral compartment. There is no evidence of fracture.
Xrays right knee show severe degenerative changes most pronounced involving the lateral tibiofemoral joint
CT Scan Left Lower Extremity shows a subtle acute minimally depressed fracture of the mid to posterior medial tibial plateau. Degree of depression is 2 mm. 8 mm of lateral subluxation of patellar apex with respect to the trochlear groove.
Generalized osteopenia. Advanced tricompartmental osteoarthritis. Large left knee effusion. Large Cottrell's cyst
CT Scan Right Lower Extremity shows generalized osteopenia. Advanced tricompartmental osteoarthritis. Large right knee effusion. Large Cottrell's cyst. No fracture identified.
PHYSICAL EXAM:
General: AAOx3. no acute distress
HEENT: NCAT, sclera anicteric, normal hearing
Heart: No JVD
Lungs: normal work of breathing on room air
MSK: Directed exam of bilateral knees performed. skin intact. no discolorations. +general TTP about knees, left greater than right. Left knee with increased tenderness over medial joint line. ROM 0-90 bilaterally. all ligaments appear stable. calves
soft and nontender. NVI distally
Assessment / Plan
ASSEMSSMENT: Left minimally depressed medial tibia plateau fracture; severe tricompartmental osteoarthritis of bilateral knees
PLAN: Unfortunately, CT scan shows that Ms. Ponce has sustained a minimally depressed left medial tibia plateau fracture likely from her recent falls. This can be treated non operatively. Will order knee immonilizer for left leg. She is to wear
this at all times. She may loosen when in bed. She is to limit her weight bearing on the left leg. Ambulate with walker. Continue with pain management as needed. Can apply ice to knee as well. PT/OT evaluation. She likely needs a total knee
replacement however her obesity does make this difficult. Follow up outpatient in 1-2 weeks for repeat left knee xrays. Orthopedics will sign off. Please reach out with any additional questions or concerns.
[2024-11-11] MEDS: LASIX 20 MG PO (09:15)
[2024-11-11] MEDS: KCL 10 MEQ PO ×2 (09:16→21:29)
[2024-11-11] MEDS: TYLENOL 1000 MG PO ×3 (09:16→21:29)
--- NOTE | 2024-11-11 12:50 | W.PN.HOSP.TC ---
Today's Communication/Plan
-
clear to discharge to rehab (complete 3 midnights on Monday 11/13).
Assessment / Plan
Assessment / Plan
Impression:
Patient is an 84y F with history of permanent A-Fib, hypothyroidism, gout, chronic CHF and obesity who presents with knee pain after a fall.
Bilateral knee x-ray shows:
There are severe degenerative changes most pronounced involving the lateral tibiofemoral compartment. There is no evidence of fracture
Seen patient underwent CT scan for persistent pain of bilateral knee.
CT scan right knee shows:
Generalized osteopenia
Advanced tricompartmental osteoarthritis
Large right knee effusion
Large Cottrell's cyst
No fracture identified.
CT scan of the right knee shows:
There is a subtle acute minimally depressed fracture of the mid to posterior medial tibial plateau. Degree of depression is 2 mm.
8 mm of lateral subluxation of patellar apex with respect to the trochlear groove.
Generalized osteopenia
Advanced tricompartmental osteoarthritis
Large left knee effusion
Large Cottrell's cyst
Orthopedic consulted.
Recommendation for left knee immobilizer, nonweightbearing , ambulate with walker, F/U in ortho office in 2 weeks.
Assessment/plan:
Status post fall with left tibial plateau fracture
B/l knee joint effusion
CT scan right knee shows:
Generalized osteopenia
Advanced tricompartmental osteoarthritis
Large right knee effusion
Large Cottrell's cyst
No fracture identified.
CT scan of the right knee shows:
There is a subtle acute minimally depressed fracture of the mid to posterior medial tibial plateau. Degree of depression is 2 mm.
8 mm of lateral subluxation of patellar apex with respect to the trochlear groove.
Generalized osteopenia
Advanced tricompartmental osteoarthritis
Large left knee effusion
Large Cottrell's cyst
PT recommending rehab
Orthopedic consulted.
Recommendation for left knee immobilizer, nonweightbearing , ambulate with walker, F/U in ortho office in 2 weeks.
Constipation
bowel regimen
History of Gout
- Neither knee with significant erythema, increased warmth, etc to suggest gout component.
- Patient reports recent GI upset with course of colchicine (few weeks ago).
- Uric acid value noted.
Permanent Atrial Fibrillation
- Stable. Continue Xarelto for stroke risk reduction. HR controlled
Chronic HFpEF
- Stable. No significant volume overload on exam.
- Patient states that she has not been taking Lasix for a week or two due to GI upset noted above.
- Follow I/Os, daily weights, etc.
Hypothyroidism
- Continue T4 supplementation.
Morbid Obesity due to excess calories
- Affects all aspects of care and specifically joint pain / ambulatory issues.
- Encourage healthy diet and increased exercise with goal of weight reduction.
CODE STATUS: Full code
DVT prophylaxis: Xarelto
Diet: Regular diet
Family communication: Discussed with son Agus at [phone],No answer left VM.
Disposition: clear to discharge to rehab (complete 3 midnights on Monday 11/13).
In total time spent on today's encounter was 65 minutes which included time spent in counseling the patient/family regarding diagnosis and treatment plan as listed above, goals of care, and symptom management. Case was discussed with nursing staff,
specialists, and care coordinators/case management. All labs and imaging personally reviewed by me. Remainder the time spent in detailed review of previous records, lab data, imaging, and other medical provider documentation. Rt
Anticipated Discharge: 24 - 48 hours
Subjective/Interval History
-
Date of Service: November 11, 2024
Patient seen and examined at bedside, denies any chest pain or shortness of breath, left knee pain.
Objective Data
-
Labs:
Laboratory Results
11/11/24
06:22
WBC 12.7 H
Hgb 11.6 L
Hct 36.2 L
Plt Count 300
Sodium 140
Potassium 4.1
Chloride 108 H
Carbon Dioxide 26
BUN 24 H
Creatinine 1.1 H
Glucose 91
Calcium 9.3
Vital Signs:
Vital Signs
Temp Pulse Resp BP Pulse Ox
98.5 F 80 16 139/90 95
11/11/24 07:55 11/11/24 09:15 11/11/24 07:55 11/11/24 09:15 11/11/24 09:20
I&O
11/10/24 11/11/24 11/12/24
06:59 06:59 06:59
Intake Total 960 / 960 1380 / 1380
Output Total 100 / 100
Balance 960 / 960 1280 / 1280
Physical Exam
-
General: Well Developed, Well Nourished, No Apparent Distress and Comfortable
HEENT: Normocephalic, Atraumatic, Moist Mucous Membranes, No Ptosis, PERRLA and Nose Appears Normal
Respiratory: Clear to Auscultation and Non Labored Respirations
Cardiac: S1/S2 and Irregular Rhythm
Breast: Deferred by me
GI: Soft, Nontender, Nondistended and Normal Bowel Sounds
Genito-urinary: No Costovertebral Tender
Musculoskeletal: No Clubbing, No Cyanosis, No Edema and Other (left knee tenderness)
Skin: Warm
Neuro: Awake, Alert, Oriented, AO x 3 and No Motor Deficits
Psych: Calm
[2024-11-11] MEDS: DESENEX/MITRAZOL/ZEASORB 1 APPLIC TOPICAL ×2 (13:36→21:33)
[2024-11-11 15:55] VITALS: BP 159/86
[2024-11-11] MEDS: XARELTO 15 MG PO (18:01)
[2024-11-11 23:15] VITALS: BP 120/65
[2024-11-12 06:00] VITALS: BMI 45.2
[2024-11-12] MEDS: SYNTHROID 50 MCG PO (06:11)
[2024-11-12 07:05] VITALS: BP 134/76
[2024-11-12] MEDS: TYLENOL 1000 MG PO ×3 (08:52→21:09)
[2024-11-12] MEDS: LASIX 20 MG PO (08:52)
[2024-11-12] MEDS: KCL 10 MEQ PO ×2 (08:53→19:42)
[2024-11-12] MEDS: DESENEX/MITRAZOL/ZEASORB 1 APPLIC TOPICAL (08:57)
[2024-11-12 09:20] LABS: Hematocrit 35.5 % (37.0-47.0); Hemoglobin 11.7 g/dL (12.0-16.0); Mean Corp Hgb Conc. 33.0 g/dL (33.0-37.0); Mean Corpuscular Volume 100.9 fL (81.0-99.0); Platelet Count 283 10^3/uL (130-400); Red Cell Dist. Width 15.6 % (11.5-14.5)
[2024-11-12 09:58] LABS: Blood Urea Nitrogen 24 mg/dl (7-17); Calcium 9.3 mg/dl (8.4-10.2); Carbon Dioxide 25 mmol/L (22-30); Chloride 109 mmol/L (98-107); Estimated Creatinine Clearance 57 ml/min; Glucose 88 mg/dl (70-99); Potassium 4.4 mmol/L (3.5-5.1); Sodium 139 mmol/L (135-145); eGFR > 60.00
--- NOTE | 2024-11-12 11:36 | CM ---
PT OT indicate SNF.
Pt changed to IMM .IMM reviewed signed and on chart.
Pt requested [facility].Referral made in care port.
PT OT updates for today.
Pt has Medicare.
PLAN Check if [facility] can accept pt .
[2024-11-12 12:14] VITALS: BP 145/121; PULSE 87
[2024-11-12 12:18] VITALS: BP 145/121; PULSE 87
--- NOTE | 2024-11-12 13:07 | W.PN.HOSP.TC ---
Today's Communication/Plan
-
discharge to rehab.
Assessment / Plan
Assessment / Plan
Impression:
Patient is an 84y F with history of permanent A-Fib, hypothyroidism, gout, chronic CHF and obesity who presents with knee pain after a fall.
Bilateral knee x-ray shows:
There are severe degenerative changes most pronounced involving the lateral tibiofemoral compartment. There is no evidence of fracture
Seen patient underwent CT scan for persistent pain of bilateral knee.
CT scan right knee shows:
Generalized osteopenia
Advanced tricompartmental osteoarthritis
Large right knee effusion
Large Cottrell's cyst
No fracture identified.
CT scan of the right knee shows:
There is a subtle acute minimally depressed fracture of the mid to posterior medial tibial plateau. Degree of depression is 2 mm.
8 mm of lateral subluxation of patellar apex with respect to the trochlear groove.
Generalized osteopenia
Advanced tricompartmental osteoarthritis
Large left knee effusion
Large Cottrell's cyst
Orthopedic consulted.
Recommendation for left knee immobilizer, nonweightbearing , ambulate with walker, F/U in ortho office in 2 weeks.
Assessment/plan:
Status post fall with left tibial plateau fracture
B/l knee joint effusion
CT scan right knee shows:
Generalized osteopenia
Advanced tricompartmental osteoarthritis
Large right knee effusion
Large Cottrell's cyst
No fracture identified.
CT scan of the right knee shows:
There is a subtle acute minimally depressed fracture of the mid to posterior medial tibial plateau. Degree of depression is 2 mm.
8 mm of lateral subluxation of patellar apex with respect to the trochlear groove.
Generalized osteopenia
Advanced tricompartmental osteoarthritis
Large left knee effusion
Large Cottrell's cyst
PT recommending rehab
Orthopedic consulted.
Recommendation for left knee immobilizer, nonweightbearing , ambulate with walker, F/U in ortho office in 2 weeks.
Constipation
bowel regimen
History of Gout
- Neither knee with significant erythema, increased warmth, etc to suggest gout component.
- Patient reports recent GI upset with course of colchicine (few weeks ago).
- Uric acid value noted.
Permanent Atrial Fibrillation
- Stable. Continue Xarelto for stroke risk reduction. HR controlled
Chronic HFpEF
- Stable. No significant volume overload on exam.
- Patient states that she has not been taking Lasix for a week or two due to GI upset noted above.
- Follow I/Os, daily weights, etc.
Hypothyroidism
- Continue T4 supplementation.
Morbid Obesity due to excess calories
- Affects all aspects of care and specifically joint pain / ambulatory issues.
- Encourage healthy diet and increased exercise with goal of weight reduction.
CODE STATUS: Full code
DVT prophylaxis: Xarelto
Diet: Regular diet
Family communication: Discussed with son Agus at [phone],No answer left VM.
Disposition: discharge to rehab.
In total time spent on today's encounter was 65 minutes which included time spent in counseling the patient/family regarding diagnosis and treatment plan as listed above, goals of care, and symptom management. Case was discussed with nursing staff,
specialists, and care coordinators/case management. All labs and imaging personally reviewed by me. Remainder the time spent in detailed review of previous records, lab data, imaging, and other medical provider documentation. Rt
Anticipated Discharge: Within 24 hours
Subjective/Interval History
-
Date of Service: November 12, 2024
Patient seen and examined at bedside, denies any chest pain or shortness of breath, no abdominal pain, no nausea, no vomiting, no diarrhea or constipation.
Pain improved with knee immobilizer.
Objective Data
-
Labs:
Laboratory Results
11/12/24
08:08
WBC 10.4
Hgb 11.7 L
Hct 35.5 L
Plt Count 283
Sodium 139
Potassium 4.4
Chloride 109 H
Carbon Dioxide 25
BUN 24 H
Creatinine 0.9
Glucose 88
Calcium 9.3
Vital Signs:
Vital Signs
Temp Pulse Resp BP Pulse Ox
97.9 F 71 16 134/76 96
11/12/24 07:05 11/12/24 07:05 11/12/24 07:05 11/12/24 07:05 11/12/24 07:05
I&O
11/11/24 11/12/24 11/13/24
06:59 06:59 06:59
Intake Total 1380 / 1380 1380 / 1380
Output Total 100 / 100
Balance 1280 / 1280 1380 / 1380
Physical Exam
-
General: Well Developed, Well Nourished, No Apparent Distress and Comfortable
HEENT: Normocephalic, Atraumatic, Moist Mucous Membranes, No Ptosis, PERRLA and Nose Appears Normal
Respiratory: Clear to Auscultation and Non Labored Respirations
Cardiac: S1/S2 and Irregular Rhythm
Breast: Deferred by me
GI: Soft, Nontender, Nondistended and Normal Bowel Sounds
Genito-urinary: No Costovertebral Tender
Musculoskeletal: No Clubbing, No Cyanosis, No Edema and Other (left knee immobilizer )
Skin: Warm
Neuro: Awake, Alert, Oriented, AO x 3 and No Motor Deficits
Psych: Calm
Data Reviewed
-
Diagnostic Radiology: Image personally visualized and interpreted and Report Reviewed by me
CT Scan: Image personally visualized and interpreted and Report Reviewed by me
Ultrasound: Image personally visualized and interpreted and Report Reviewed by me
MRI: Image personally visualized and interpreted and Report Reviewed by me
Medical Tests (Nuc Med, Echo etc): Image personally visualized and interpreted and Report Reviewed by me
Labs: Labs Reviewed by me
Old Records: Reviewed
[2024-11-12 15:05] VITALS: BP 147/83
[2024-11-12] MEDS: XARELTO 15 MG PO (16:46)
[2024-11-12] MEDS: DESENEX/MITRAZOL/ZEASORB TOPICAL (19:53)
[2024-11-12 23:38] VITALS: BP 141/92
[2024-11-13] MEDS: SYNTHROID 50 MCG PO (04:21)
[2024-11-13 06:00] VITALS: BMI 45.2
[2024-11-13 08:38] VITALS: BP 141/88
[2024-11-13] MEDS: KCL 10 MEQ PO (08:40)
[2024-11-13] MEDS: TYLENOL 1000 MG PO ×2 (08:40→16:35)
[2024-11-13] MEDS: LASIX PO (08:50)
--- NOTE | 2024-11-13 08:58 | PN.CDI ---
CDI
- -
CDI:
Physician Documentation Request
Admit Date: 11/10/24 08:30
Dear Doctor Ike,
Patient admitted for falls with knee pain.
11/12 Hospitalist PN: 'CT scan of the right knee shows: There is a subtle acute minimally depressed fracture of the mid to posterior medial tibial plateau...Generalized osteopenia, Advanced tricompartmental osteoarthritis'
Please provide further specificity regarding the diagnosis of fracture:
Due to a combination of trauma and a pathological process but the trauma alone would not likely have been sufficient to cause the fracture
Traumatic fracture only
Other
Use of terms such as suspected, likely, concern for, or probable (associated with a specific diagnosis that is being evaluated, monitored, or treated as if it exists) are acceptable and can be coded in the inpatient setting, when documented at the
time of discharge.
Thank you,
Joann Max RN, BSN
CDI Specialist
[employer] via [employer] text
Please use your independent medical judgment in providing your response.
--- NOTE | 2024-11-13 09:15 | W.PN.HOSP.TC ---
Today's Communication/Plan
-
discharge to rehab.
Assessment / Plan
Assessment / Plan
Impression:
Patient is an 84y F with history of permanent A-Fib, hypothyroidism, gout, chronic CHF and obesity who presents with knee pain after a fall.
Bilateral knee x-ray shows:
There are severe degenerative changes most pronounced involving the lateral tibiofemoral compartment. There is no evidence of fracture
Seen patient underwent CT scan for persistent pain of bilateral knee.
CT scan right knee shows:
Generalized osteopenia
Advanced tricompartmental osteoarthritis
Large right knee effusion
Large Cottrell's cyst
No fracture identified.
CT scan of the right knee shows:
There is a subtle acute minimally depressed fracture of the mid to posterior medial tibial plateau. Degree of depression is 2 mm.
8 mm of lateral subluxation of patellar apex with respect to the trochlear groove.
Generalized osteopenia
Advanced tricompartmental osteoarthritis
Large left knee effusion
Large Cottrell's cyst
Orthopedic consulted.
Recommendation for left knee immobilizer, nonweightbearing , ambulate with walker, F/U in ortho office in 2 weeks.
will be discharged to rehab today.
Assessment/plan:
Status post fall with left tibial plateau fracture
Due to a combination of trauma and a pathological process (osteopenia)
B/l knee joint effusion
CT scan right knee shows:
Generalized osteopenia
Advanced tricompartmental osteoarthritis
Large right knee effusion
Large Cottrell's cyst
No fracture identified.
CT scan of the right knee shows:
There is a subtle acute minimally depressed fracture of the mid to posterior medial tibial plateau. Degree of depression is 2 mm.
8 mm of lateral subluxation of patellar apex with respect to the trochlear groove.
Generalized osteopenia
Advanced tricompartmental osteoarthritis
Large left knee effusion
Large Cottrell's cyst
PT recommending rehab
Orthopedic consulted.
Recommendation for left knee immobilizer, nonweightbearing , ambulate with walker, F/U in ortho office in 2 weeks.
11/13
Dcto rehab today.
Constipation
bowel regimen
History of Gout
- Neither knee with significant erythema, increased warmth, etc to suggest gout component.
- Patient reports recent GI upset with course of colchicine (few weeks ago).
- Uric acid value noted.
Permanent Atrial Fibrillation
- Stable. Continue Xarelto for stroke risk reduction. HR controlled
Chronic HFpEF
- Stable. No significant volume overload on exam.
- Patient states that she has not been taking Lasix for a week or two due to GI upset noted above.
- Follow I/Os, daily weights, etc.
Hypothyroidism
- Continue T4 supplementation.
Morbid Obesity due to excess calories
- Affects all aspects of care and specifically joint pain / ambulatory issues.
- Encourage healthy diet and increased exercise with goal of weight reduction.
CODE STATUS: Full code
DVT prophylaxis: Xarelto
Diet: Regular diet
Family communication: Discussed with son Agus at [phone],No answer left VM.
Disposition: discharge to rehab.
In total time spent on today's encounter was 65 minutes which included time spent in counseling the patient/family regarding diagnosis and treatment plan as listed above, goals of care, and symptom management. Case was discussed with nursing staff,
specialists, and care coordinators/case management. All labs and imaging personally reviewed by me. Remainder the time spent in detailed review of previous records, lab data, imaging, and other medical provider documentation. Rt
Anticipated Discharge: Today
Subjective/Interval History
-
Date of Service: November 13, 2024
atient seen and examined at bedside, denies any chest pain or shortness of breath, no abdominal pain, no nausea, no vomiting, no diarrhea or constipation.
knee immobilizer.
Objective Data
-
Vital Signs:
Vital Signs
Temp Pulse Resp BP Pulse Ox
98.4 F 99 16 141/88 94
11/13/24 08:38 11/13/24 08:38 11/13/24 08:38 11/13/24 08:38 11/13/24 08:38
I&O
11/12/24 11/13/24 11/14/24
06:59 06:59 06:59
Intake Total 1380 / 1380 1020 / 1020
Balance 1380 / 1380 1020 / 1020
Physical Exam
-
General: Well Developed, Well Nourished, No Apparent Distress and Comfortable
HEENT: Normocephalic, Atraumatic, Moist Mucous Membranes, No Ptosis, PERRLA and Nose Appears Normal
Respiratory: Clear to Auscultation and Non Labored Respirations
Cardiac: S1/S2 and Irregular Rhythm
Breast: Deferred by me
GI: Soft, Nontender, Nondistended and Normal Bowel Sounds
Genito-urinary: No Costovertebral Tender
Musculoskeletal: No Clubbing, No Cyanosis, No Edema and Other (left knee immobilizer )
Skin: Warm
Neuro: Awake, Alert, Oriented, AO x 3 and No Motor Deficits
Psych: Calm
[2024-11-13 11:00] VITALS: BP 145/71
--- NOTE | 2024-11-13 11:18 | W.DCSUMMARY ---
Discharge Summary
Discharge Data
Date of Admission: 11/10/24
Date of Discharge: 11/13/24
Total time spent discharging patient (in min): 40
-
Pending Results: No
Hospital Course
Hospital course
Patient is an 84y F with history of permanent A-Fib, hypothyroidism, gout, chronic CHF and obesity who presents with knee pain after a fall.
Bilateral knee x-ray shows:
There are severe degenerative changes most pronounced involving the lateral tibiofemoral compartment. There is no evidence of fracture
Seen patient underwent CT scan for persistent pain of bilateral knee.
CT scan right knee shows:
Generalized osteopenia
Advanced tricompartmental osteoarthritis
Large right knee effusion
Large Cottrell's cyst
No fracture identified.
CT scan of the right knee shows:
There is a subtle acute minimally depressed fracture of the mid to posterior medial tibial plateau. Degree of depression is 2 mm.
8 mm of lateral subluxation of patellar apex with respect to the trochlear groove.
Generalized osteopenia
Advanced tricompartmental osteoarthritis
Large left knee effusion
Large Cottrell's cyst
Orthopedic consulted.
Recommendation for left knee immobilizer, nonweightbearing , ambulate with walker, F/U in ortho office in 2 weeks.
will be discharged to rehab today.
During hospitalization patient was treated from the following
Status post fall with left tibial plateau fracture
Due to a combination of trauma and a pathological process (osteopenia)
B/l knee joint effusion
CT scan right knee shows:
Generalized osteopenia
Advanced tricompartmental osteoarthritis
Large right knee effusion
Large Cottrell's cyst
No fracture identified.
CT scan of the right knee shows:
There is a subtle acute minimally depressed fracture of the mid to posterior medial tibial plateau. Degree of depression is 2 mm.
8 mm of lateral subluxation of patellar apex with respect to the trochlear groove.
Generalized osteopenia
Advanced tricompartmental osteoarthritis
Large left knee effusion
Large Cottrell's cyst
PT recommending rehab
Orthopedic consulted.
Recommendation for left knee immobilizer, nonweightbearing , ambulate with walker, F/U in ortho office in 2 weeks.
11/13
Dcto rehab today.
Constipation
bowel regimen
History of Gout
- Neither knee with significant erythema, increased warmth, etc to suggest gout component.
- Patient reports recent GI upset with course of colchicine (few weeks ago).
- Uric acid value noted.
Permanent Atrial Fibrillation
- Stable. Continue Xarelto for stroke risk reduction. HR controlled
Chronic HFpEF
- Stable. No significant volume overload on exam.
- Patient states that she has not been taking Lasix for a week or two due to GI upset noted above.
- Follow I/Os, daily weights, etc.
Hypothyroidism
- Continue T4 supplementation.
Morbid Obesity due to excess calories
- Affects all aspects of care and specifically joint pain / ambulatory issues.
- Encourage healthy diet and increased exercise with goal of weight reduction.
CODE STATUS: Full code
DVT prophylaxis: Xarelto
Diet: Regular diet
Family communication: Discussed with son Agus at [phone],No answer left VM.
Disposition: discharge to rehab.
Total time spent on today's encounter was 40 minutes which included time spent in counseling the patient/family regarding diagnosis and treatment plan as listed above, goals of care, and symptom management. Case was discussed with nursing staff,
specialists, and care coordinators/case management. All labs and imaging personally reviewed by me. Remainder the time spent in detailed review of previous records, lab data, imaging, and other medical provider documentation.
Anticipated Discharge: Today
Discharge Plan
-
Patient Disposition: [facility]SNF
Discharge Diagnosis/Procedures: Status post fall with left tibial plateau fracture
B/l knee joint effusion.
Permanent Atrial Fibrillation
Diet: Low Cholesterol and Low Sodium
Activity: With assistance, As tolerated and Do not bear weight L leg
Additional Activity: knee immonilizer for left leg. wear this at all times, may loosen when in bed.
limit weight bearing on the left leg.
Ambulate with walker.
Can apply ice to knee as well.
Other Services: PT and OT
Referrals:
Virgilio Kennedy MD [Active, Orthopedics] - in one to two weeks
Jody Willingham MD [Family Provider, Family Practice]
Prescriptions:
Continued
potassium chloride [Klor-Con 10] 10 mEq Tablet Extended Release
10 meq PO BID
levothyroxine 50 mcg Tablet
50 mcg PO DAILY
furosemide 20 mg Tablet
20 mg PO DAILY
rivaroxaban [Xarelto] 20 mg Tablet
20 mg PO DAILY
Vitamin D
50 mcg PO DAILY
Changed
acetaminophen [Tylenol] 325 mg Tablet
650 mg PO Q6HPRN PRN (Reason: Pain) Qty: 0 0RF
Discharge Orders:
Discharge Patient (As Directed); Ordered 11/13/24
Ordered By: Andrei Ramires
Discharge Date and Time
Print Language: BELARUSIAN
--- NOTE | 2024-11-13 11:46 | CM ---
MD entered order for discharge.
Pt accepted at [facility].Referral made in care port.
Medical nec form completed.
Ambulance requested for after 3 pm today.
Needs Covid test notified
[facility]
report [phone]
fax [phone]
[facility] today after covid test
[2024-11-13 11:51] LABS: COVID-19 Antigen Negative (Negative)
[2024-11-13 12:10] VITALS: BP 145/71
[2024-11-13] MEDS: DESENEX/MITRAZOL/ZEASORB TOPICAL (13:36)
[2024-11-13 15:00] VITALS: BP 126/64
== END 2024-11-13 18:12 | DRG 543 ==
LOC: 4 EAST ACU 08:30
PROVIDERS: Internal Medicine; ADMITTING PHYSICIAN Hospitalist; ATTENDING PHYSICIAN General Practice; CONSULT PHYSICIAN Specialist; EMERGENCY PHYSICIAN Emergency Medicine; FAMILY PHYSICIAN Family Medicine
DX: M84.462A Pathological fracture, left tibia, initial encounter for fracture (principal); I48.21 Permanent atrial fibrillation; I50.32 Chronic diastolic (congestive) heart failure; Z68.42 Body mass index [BMI] 45.0-49.9, adult; K59.00 Constipation, unspecified; S83.013A Lateral subluxation of unspecified patella, initial encounter; E03.9 Hypothyroidism, unspecified; M10.9 Gout, unspecified; E66.01 Morbid (severe) obesity due to excess calories; N18.9 Chronic kidney disease, unspecified; M17.0 Bilateral primary osteoarthritis of knee; M71.21 Synovial cyst of popliteal space [Baker], right knee; M71.22 Synovial cyst of popliteal space [Baker], left knee; M85.862 Other specified disorders of bone density and structure, left lower leg; M85.861 Other specified disorders of bone density and structure, right lower leg; G89.29 Other chronic pain; R29.6 Repeated falls; T50.1X6A Underdosing of loop [high-ceiling] diuretics, initial encounter; Z91.148 Patient's other noncompliance with medication regimen for other reason; Y92.9 Unspecified place or not applicable; W10.8XXA Fall (on) (from) other stairs and steps, initial encounter; Y93.01 Activity, walking, marching and hiking; Y92.098 Other place in other non-institutional residence as the place of occurrence of the external cause; Z60.2 Problems related to living alone; Z79.01 Long term (current) use of anticoagulants; Z90.81 Acquired absence of spleen; Z79.890 Hormone replacement therapy; Z86.718 Personal history of other venous thrombosis and embolism; Z88.5 Allergy status to narcotic agent
CPT/HCPCS: 73564; 73700; 80048; 80053; 84550; 85025; 85027; 85652; 86140; 87811; 97162; 97164; 97167; 97530; 97535; 99285